=== PATIENT | male | born 1945 | race Caucasian/White ===

== ENCOUNTER 2023-04-17 14:42 | Emergency (ER) | payer MEDICARE, BC ==
[2023-04-17] MEDS ORDERED: Sodium Chloride 0.9% 10 ML Syringe FLUSH PRN (14:49)
[2023-04-17 15:21] LABS: BASOPHILS ABSOLUTE AUTO 0.1 x10-3/uL (0.0-0.3); BASOPHILS PERCENT AUTO 0.6 % (0.3-3.8); BLOOD UREA NITROGEN,BUN 22 mg/dL (7-18); CALCIUM 8.8 mg/dL (8.6-10.2); CARBON DIOXIDE,CO2 24 mmol/L (21-32); CHLORIDE,CL 105 mmol/L (100-110); CREATININE 1.1 mg/dL (0.70-1.30); EOSINOPHILS ABSOLUTE AUTO 0.7 x10-3/uL (0.0-0.6); EOSINOPHILS PERCENT AUTO 6.2 % (0.1-6.8); ESTIMATED GFR 70 mL/min (>60); GLUCOSE RANDOM 108 mg/dL (80-116); HEMATOCRIT 37.7 % (38.3-50.1); HEMOGLOBIN 12.5 g/dL (12.9-17.7); LYMPHOCYTES ABSOLUTE AUTO 5.1 x10-3/uL (0.5-4.5); LYMPHOCYTES PERCENT AUTO 43.1 % (15.8-45.3); MEAN CORPUSCULAR HEMOGLOBIN 31.1 pg (27.0-33.3); MEAN CORPUSCULAR HGB CONC 33.2 g/dL (28.7-35.3); MEAN CORPUSCULAR VOLUME 93.7 fL (80.8-98.7); MEAN PLATELET VOLUME 7.2 fL (6.7-11.0); MONOCYTES ABSOLUTE AUTO 1.4 x10-3/uL (0.0-1.2); MONOCYTES PERCENT AUTO 11.8 % (5.5-15.2); NEUTROPHILS ABSOLUTE AUTO 4.6 x10-3/uL (1.7-6.9); NEUTROPHILS PERCENT AUTO 38.3 % (40.3-71.8); PLATELET COUNT,PLT 356 x10(3)uL (117-477); POTASSIUM,K 4.2 mmol/L (3.5-5.3); RED BLOOD CELL COUNT 4.02 x10(6)uL (3.90-5.90); RED CELL DISTRIBUTION WIDTH 15.4 % (12.4-15.0); SODIUM,NA 141 mmol/L (135-145); WHITE BLOOD CELL COUNT,WBC 11.9 x10-3/uL (3.2-10.1)
[2023-04-17 15:27] LABS: A/G RATIO 0.8; ALANINE AMINOTRANSFERASE,ALT 30 U/L (12-36); ALBUMIN 3.1 g/dL (3.2-4.6); ALKALINE PHOSPHATASE 73 IU/L (56-112); ASPARTATE AMNIOTRANSFERASE,AST 23 IU/L (5-25); BILIRUBIN TOTAL 0.5 mg/dL (0.1-1.3)
[2023-04-17 15:28] LABS: INR 0.99 (1.00-1.24); PROTHROMBIN TIME 10.3 sec (9.0-11.1); PTT,PARTIAL THROMBOPLSTIN TIME 22.1 SECONDS (24.4-33.2)
[2023-04-17] MEDS: Clopidogrel 75 MG Tab PO ONE (15:51)
[2023-04-17] MEDS: Aspirin 81 MG Tab.Chew PO ONE (15:51)
[2023-04-17 16:15] LABS: APPEARANCE,URINE CLEAR (CLEAR); BACTERIA,URINE RARE (NS); BILIRUBIN,URINE NEGATIVE (NEGATIVE); COLOR,URINE YELLOW (YELLOW); GLUCOSE,URINE NORMAL (NORMAL); KETONES,URINE NEGATIVE (NEGATIVE); LEUKOCYTE ESTERASE,URINE NEGATIVE (NEGATIVE); NITRITE,URINE NEGATIVE (NEGATIVE); OCCULT BLOOD,URINE NEGATIVE (NEGATIVE); PROTEIN,URINE NEGATIVE (NEGATIVE); RBC,URINE 0-5 (0-5); SQUAMOUS EPITHELIAL CELLS,UR OCCASIONAL (NS,R,O); UROBILINOGEN,URINE NORMAL (NEGATIVE); WBC,URINE 0-5 (0-5)
[2023-04-17] MEDS: Iopamidol 755 Mg/ML 100 ML Bottle IV SCH (16:54)
[2023-04-17] MEDS ORDERED: Sodium Chloride 0.9% 1,000 ML IV SCH (18:15)
[2023-04-17] MEDS: Acetaminophen/oxyCODONE 325-5 MG Tab PO STA (18:16)
[2023-04-17] MEDS: Sodium Chloride 0.9% 500 ML IV ONE (18:17)
[2023-04-17 19:12] VITALS: BP 161/70; PULSE 57
== END 2023-04-17 19:10 | disposition home or self-care (01) ==
LOC: FB.ED 14:42
DX: G45.9 Transient cerebral ischemic attack, unspecified (principal); I10 Essential (primary) hypertension; K21.9 Gastro-esophageal reflux disease without esophagitis; E11.9 Type 2 diabetes mellitus without complications; I25.810 Atherosclerosis of coronary artery bypass graft(s) without angina pectoris; E78.5 Hyperlipidemia, unspecified; H26.9 Unspecified cataract; Z79.82 Long term (current) use of aspirin; Z79.899 Other long term (current) drug therapy; Z88.8 Allergy status to other drugs, medicaments and biological substances
CPT/HCPCS: 70450; 70496; 70498; 71045; 80053; 81001; 82947; 84484; 85025; 85610; 85730; 93005; 93010; 96360; 99284; 99285; A9270; J7040; Q9967

== ENCOUNTER 2024-07-22 08:24 | Day surgery (SDC) | payer MEDICARE, BC ==
[2024-07-22] MEDS ORDERED: Lidocaine 2% 100 MG/5 ML Syringe IVPUSH ONE (08:25)
[2024-07-22] MEDS ORDERED: Propofol 200 MG/20 ML SDV IV ONE (08:25)
[2024-07-22] MEDS ORDERED: Sodium Chloride 0.9% 10 ML Syringe FLUSH PRN (08:30)
[2024-07-22] MEDS: Lactated Ringers 1,000 ML IV SCH (09:14)
[2024-07-22] MEDS: Simethicone Drops 40 MG/0.6 ML 30 ML Bottle ONE (09:35)
[2024-07-22 11:14] VITALS: BP 137/70; PULSE 51
== END 2024-07-22 11:09 | disposition home or self-care (01) ==
LOC: FB.SDS 08:24
PROVIDERS: ATTEND Surgery
DX: K29.70 Gastritis, unspecified, without bleeding (principal); I10 Essential (primary) hypertension; E11.9 Type 2 diabetes mellitus without complications; I25.10 Atherosclerotic heart disease of native coronary artery without angina pectoris; G47.33 Obstructive sleep apnea (adult) (pediatric); E78.5 Hyperlipidemia, unspecified; Z95.1 Presence of aortocoronary bypass graft
CPT/HCPCS: 00731; 43239; 82947; 88305; 99100; A9270; J2704; J7120